=== PATIENT | male | born 1960 ===

== ENCOUNTER → 2022-02-02 13:42 | Outpatient (CLI) | payer OTHER, SELFPAY ==
--- NOTE | ~2022-02-02 | MR_ITS ---
EXAMINATION: MR shoulder LT wo con DATE: 02/02/2022 14:22 INDICATION: Left shoulder pain TECHNIQUE: Magnetic resonance imaging (MRI) of the left shoulder was performed without intravenous co ntrast. Sequences included axial PD-weighted FS FSE, coronal oblique PD-weighted FS FSE, coronal obli que T2-weighted FS FSE, sagittal PD-weighted FS FSE, and sagittal T1-weighted SE. COMPARISON: None. FINDINGS: Coracoacromial arch: The acromion undersurface is curved in morphology (type II). The coracoacromial ligament is normal. M oderate acromioclavicular osteoarthritis. Rotator cuff: Moderate supraspinatus and infraspinatus tendinopathy. There is a tear extending along the critical z one of the supraspinatus and infraspinatus tendons partially full thickness at the supraspinatus tend on and near full-thickness at the anterior infraspinatus tendon with a few residual intact bursal rigo ed fibers which are of indeterminate functional integrity. The combined tear defect measures approxim ately 3.5 cm AP at the level of the apex of the humeral head at least 1.1 cm which is definitively fu ll-thickness . There is approximately 3.5 cm medial retraction of the tear margin which occurs approx imately 1 cm from the greater tuberosity footplate. The teres minor tendon is normal. Mild subscapula ris tendinopathy without discrete tear. There is medial retraction of the supraspinatus muscle belly with mild increased muscular fluid signal but without significant fatty atrophy which suggests relati vely recent tear. Biceps tendon, glenoid labrum and glenohumeral cartilage: Long head of the biceps tendon is normal. There is a deep chondral flap tear along the posterior infe rior glenoid with linear fluid signal at or near the bone chondral interface underlying the cartilage flap which measures approximately 10 mm AP and 9 mm craniocaudally. The flap appears to remain attac hed along its inferior margin along the labrum which appears thickened and with irregular margins and some intrasubstance increased signal consistent with associated tearing. There is subarticular cystl paty change at the 7:00-8:00 position of the posterior inferior glenoid. There is partial thickness ca rtilage loss at the inferior glenoid extending anteriorly and superiorly from the chondral flap tear. Additional partial thickness cartilage loss with smooth chondral surface irregularity along the infe romedial aspect of the humeral head. Fluid: Small glenohumeral joint effusion with mild synovitis at the posterior recess of the joint space. Sma ll amount of fluid at the subacromial/subdeltoid bursa likely representing decompression of the gleno humeral joint effusion. The full-thickness rotator cuff tear defect. No loose osteochondral bodies. T here is increased fluid tracking caudally along the periphery of the short head of the biceps tendon which could represent epimysial edema related to low-grade muscle strain or extravasation of fluid fr om the subacromial/subdeltoid bursa. Bones: There is mild cephalad subluxation of the humeral head with respect to the glenoid likely secondary t o the rotator cuff tear. No fracture or pathologic marrow replacing process. IMPRESSION: 1. Moderate supraspinatus and infraspinatus tendinopathy with moderate sized tear, partial full-thick ness and partially near full-thickness articular sided which involves the majority of the supraspinat us and anterior half of the infraspinatus tendons. 2. Mild glenohumeral osteoarthritis with deep chondral flap tear involving a 10 x 9 mm region of the cartilage at the posterior inferior glenoid and with small associated tear at the posterior inferior labrum. 3. Fluid surrounding the proximal short head of the biceps which could represent epimysial edema rela darryn to low-grade strain or decompression of fluid from the subacromial/subdeltoid bursa itself result ing from a modera
== END ==
PROVIDERS: PCP Family Medicine; Visit Provider Orthopaedic Surgery
DX: M19.012 Primary osteoarthritis, left shoulder (principal)
CPT/HCPCS: 73221